=== PATIENT | female | born 1930 | race Caucasian/White ===

== ENCOUNTER → 2017-09-02 | Emergency (ER) | payer OTHER ==
[~2017-09-02] VITALS: Ht 149.9 cm; Wt 68.0 kg
[~2017-09-02] MED LIST: LASIX40 MG; LEVEMIR FL100 UNIT/1; PULMICORT1 MG/2 ML; XOPENEX0.63 MG/3
== END | disposition home or self-care (01) ==
LOC: ER 12:52
DX: I50.9 Heart failure, unspecified (principal); I27.20 Pulmonary hypertension, unspecified; J90 Pleural effusion, not elsewhere classified

== ENCOUNTER 2017-11-18 15:37 | Inpatient (IN) | payer OTHER ==
[~2017-11-18] VITALS: Ht 157.5 cm; Wt 72.6 kg
== END 2017-11-27 12:19 | disposition home or self-care (01) | DRG 240 ==
LOC: ER 15:37 → MEDJ 19:02 → MEDI 19:02 → MEDJ 11-27 12:19
PROVIDERS: Specialist
PROC: B44FZZZ Ultrasonography of Right Lower Extremity Arteries (ICD-10-PCS; 2017-11-18)
PROC: B54BZZZ Ultrasonography of Right Lower Extremity Veins (ICD-10-PCS; 2017-11-18)
PROC: 8E0ZXY6 Isolation (ICD-10-PCS; 2017-11-18)
PROC: 4A12X4Z Monitoring of Cardiac Electrical Activity, External Approach (ICD-10-PCS; 2017-11-19)
PROC: 0Y6H0Z1 Detachment at Right Lower Leg, High, Open Approach (ICD-10-PCS; principal; 2017-11-22 17:00)
DX: E11.52 Type 2 diabetes mellitus with diabetic peripheral angiopathy with gangrene (principal); L97.518 Non-pressure chronic ulcer of other part of right foot with other specified severity; I13.0 Hypertensive heart and chronic kidney disease with heart failure and stage 1 through stage 4 chronic kidney disease, or unspecified chronic kidney disease; I50.30 Unspecified diastolic (congestive) heart failure; I70.261 Atherosclerosis of native arteries of extremities with gangrene, right leg; E03.8 Other specified hypothyroidism; L93.0 Discoid lupus erythematosus; I48.0 Paroxysmal atrial fibrillation; I27.29 Other secondary pulmonary hypertension; I35.0 Nonrheumatic aortic (valve) stenosis; E11.22 Type 2 diabetes mellitus with diabetic chronic kidney disease; N18.3 Chronic kidney disease, stage 3 (moderate); E88.09 Other disorders of plasma-protein metabolism, not elsewhere classified; B95.2 Enterococcus as the cause of diseases classified elsewhere; B96.4 Proteus (mirabilis) (morganii) as the cause of diseases classified elsewhere; J44.9 Chronic obstructive pulmonary disease, unspecified; E11.621 Type 2 diabetes mellitus with foot ulcer; M79.661 Pain in right lower leg

== ENCOUNTER 2017-12-13 18:52 | Inpatient (IN) | payer OTHER ==
[~2017-12-13] VITALS: Ht 152.4 cm; Wt 63.5 kg
[2017-12-13] MEDS ORDERED: TOPROL XL25 M1 (19:41)
== END 2017-12-22 15:05 | disposition expired | DRG 308 ==
LOC: ER 18:52 → ICU-2 19:57 → SEC-K 12-16 15:24 → MEDI 12-16 15:46 → SURH 12-16 15:46
PROC: B246ZZZ Ultrasonography of Right and Left Heart (ICD-10-PCS; 2017-12-13)
PROC: 3E0F7GC Introduction of Other Therapeutic Substance into Respiratory Tract, Via Natural or Artificial Opening (ICD-10-PCS; principal; 2017-12-14)
PROC: BW40ZZZ Ultrasonography of Abdomen (ICD-10-PCS; 2017-12-14)
PROC: 4A12X4Z Monitoring of Cardiac Electrical Activity, External Approach (ICD-10-PCS; 2017-12-16)
PROC: 8E0ZXY6 Isolation (ICD-10-PCS; 2017-12-16)
PROC: BW21ZZZ Computerized Tomography (CT Scan) of Abdomen and Pelvis (ICD-10-PCS; 2017-12-20)
PROC: 4A033R1 Measurement of Arterial Saturation, Peripheral, Percutaneous Approach (ICD-10-PCS; 2017-12-21)
PROC: 5A09457 Assistance with Respiratory Ventilation, 24-96 Consecutive Hours, Continuous Positive Airway Pressure (ICD-10-PCS; 2017-12-21)
DX: I47.2 Ventricular tachycardia (principal); A41.9 Sepsis, unspecified organism; J18.9 Pneumonia, unspecified organism; I13.0 Hypertensive heart and chronic kidney disease with heart failure and stage 1 through stage 4 chronic kidney disease, or unspecified chronic kidney disease; B37.49 Other urogenital candidiasis; I50.30 Unspecified diastolic (congestive) heart failure; N17.8 Other acute kidney failure; J90 Pleural effusion, not elsewhere classified; I70.291 Other atherosclerosis of native arteries of extremities, right leg; E11.51 Type 2 diabetes mellitus with diabetic peripheral angiopathy without gangrene; M32.8 Other forms of systemic lupus erythematosus; E11.22 Type 2 diabetes mellitus with diabetic chronic kidney disease; N18.3 Chronic kidney disease, stage 3 (moderate); I27.29 Other secondary pulmonary hypertension; Z89.611 Acquired absence of right leg above knee; E03.8 Other specified hypothyroidism; I34.0 Nonrheumatic mitral (valve) insufficiency; I35.2 Nonrheumatic aortic (valve) stenosis with insufficiency; I48.0 Paroxysmal atrial fibrillation; E88.09 Other disorders of plasma-protein metabolism, not elsewhere classified; R60.1 Generalized edema; L89.150 Pressure ulcer of sacral region, unstageable; Z66 Do not resuscitate